=== PATIENT | female | born 1935 | race Caucasian/White ===

== ENCOUNTER 2022-03-12 11:26 | Emergency (ER) | payer BC, OTHER ==
[2022-03-12 12:08] VITALS: TEMP 98.2; BMI 22.4
[2022-03-12 12:40] LABS: BASO % 1.2 % (0-2.0); EOS % 0.8 % (0-4.5); HEMATOCRIT 35.1 % (32.4-45.2); HEMOGLOBIN 11.8 GM/dL (10.7-15.3); LYMPH % 34.7 % (8-40); MCH 28.4 pg (25.7-33.7); MCHC 33.5 g/dl (32.0-36.0); MEAN CELL VOLUME 84.8 fl (80-96); MEAN PLT VOLUME 7.5 fl (7.5-11.1); MONO % 10.1 % (3.8-10.2); NEUT % 53.2 % (42.8-82.8); PLATELET COUNT 191 10^3/uL (134-434); RBC 4.14 M/mm3 (3.60-5.2); RDW 14.8 % (11.6-15.6); WHITE BLOOD COUNT 4.3 K/mm3 (4.0-10.0)
[2022-03-12 12:55] LABS: BLOOD UREA NITROGEN 26.7 mg/dL (7-18); CALCIUM 9.2 mg/dL (8.5-10.1)
[2022-03-12 12:56] LABS: ALBUMIN 3.9 g/dl (3.4-5.0)
[2022-03-12 12:59] LABS: CREATININE 0.9 mg/dL (0.55-1.3)
[2022-03-12 13:00] LABS: BILIRUBIN,TOTAL 0.5 mg/dL (0.2-1); TOT PROT 7.2 g/dl (6.4-8.2)
[2022-03-12] MEDS ORDERED: SODIUM CHLORIDE 0.9% 500 ML INFUS.BAG IV ONE (13:52)
[2022-03-12 14:37] LABS: URINE APPEARANCE CLEAR; URINE BILIRUBIN NEGATIVE (NEGATIVE); URINE COLOR YELLOW; URINE GLUCOSE (UA) NEGATIVE (NEGATIVE); URINE KETONE TRACE (NEGATIVE); URINE LEUK ESTERASE NEGATIVE (NEGATIVE); URINE NITRITE NEGATIVE (NEGATIVE); URINE PROTEIN NEGATIVE (NEGATIVE); URINE UROBILINOGEN 0.2 mg/dL (0.2-1.0)
[2022-03-12] MEDS ORDERED: METOPROLOL TARTRATE 5 MG/5 ML VIAL IVPUSH ONE (15:32)
[2022-03-12] MEDS ORDERED: METOPROLOL TARTRATE 25 MG TABLET (FP) PO ONE (15:46)
[2022-03-12] MEDS ORDERED: METOPROLOL TARTRATE 25 MG TABLET (FP) ONE (15:51)
[2022-03-12] MEDS ORDERED: METOPROLOL TARTRATE 5 MG/5 ML VIAL ONE (15:51)
[2022-03-12 16:16] VITALS: BP 146/75; PULSE 101; RESP 16
== END 2022-03-12 16:35 | disposition home or self-care (01) ==
LOC: JER 11:26
PROC: 3E033GC Introduction of Other Therapeutic Substance into Peripheral Vein, Percutaneous Approach (ICD-10-PCS; principal; 2022-03-12)
DX: I10 Essential (primary) hypertension (principal); W19.XXXA Unspecified fall, initial encounter
CPT/HCPCS: 36415; 70450-TC; 71045-TC-FY; 80053; 81003; 82962; 84443; 84484; 85025; 87086; 93005; 93010; 99285-25